=== PATIENT | female | born 1955 | race Caucasian/White ===

== ENCOUNTER → 2017-03-25 | Outpatient (CLI) | payer OTHER ==
[~2017-03-25] MED LIST: ACETYLCYST200 MG/1 M; ALBUTEROL INH; ALBUTEROL2.5 MG/0.1; ASPIRIN81 M2 PO; CALCIUM 500 +1 EAC5 PO; DALIRESP500 MCG PO; DUONEB 2.5-0.5 M3 ML INH; FLUTICASONE PRO30 G1 NASAL; FUROSEMIDE PO; GLUCOPHAGE1000 MG PO; LEVALBUTER1.25 MG/0. INH; MAGNESIUM OXID200 MG PO; METOCLOPRAMIDE PO; MUCINEX TA600 MG/TA1 PO; PREDNISONE 20 M20 M1 PO; PREDNISONE 5 MG5 MG PO; PREDNISONE PO; PRILOSEC 20 MG20 MG PO; PROTONIX PO; SINGULAIR 10 MG10 M1 PO; SPIRIVA; SYMBICORT INH; TESSALON PERLE100 MG PO; Tylenol 325MG Caplet PO; VITAMIN D 5050000 I1
== END ==
LOC: CAT 14:13
DX: J47.9 Bronchiectasis, uncomplicated (principal); R06.00 Dyspnea, unspecified; R07.9 Chest pain, unspecified

== ENCOUNTER → 2017-07-30 | Outpatient (CLI) | payer OTHER | LOC: RAD 04:02 | DX: N60.02 Solitary cyst of left breast (principal) ==

== ENCOUNTER → 2018-10-25 | Outpatient (CLI) | payer OTHER | LOC: RAD 02:46 → ULTRA 15:10 → RAD 15:18 | DX: N60.81 Other benign mammary dysplasias of right breast (principal); R92.2 Inconclusive mammogram; Z80.3 Family history of malignant neoplasm of breast ==

== ENCOUNTER → 2020-04-04 | Outpatient (CLI) | payer OTHER | LOC: MRI 12:10 | PROVIDERS: ATTEND Internal Medicine | DX: Z12.31 Encounter for screening mammogram for malignant neoplasm of breast (principal); G93.89 Other specified disorders of brain; Z00.00 Encounter for general adult medical examination without abnormal findings; C44.89 Other specified malignant neoplasm of overlapping sites of skin ==

== ENCOUNTER → 2021-04-09 | Outpatient (CLI) | payer OTHER, MEDICARE | LOC: BC 11:07 | PROVIDERS: ATTEND Internal Medicine | DX: Z12.31 Encounter for screening mammogram for malignant neoplasm of breast (principal); N64.89 Other specified disorders of breast ==

== ENCOUNTER → 2021-04-11 | Outpatient (CLI) | payer OTHER, MEDICARE | LOC: ULTRA 13:25 | PROVIDERS: ATTEND Internal Medicine | DX: R92.2 Inconclusive mammogram (principal) ==